=== PATIENT | female | born 1940 | race Caucasian/White ===

== ENCOUNTER → 2016-12-31 | Outpatient (CLI) | payer OTHER, BC ==
[~2016-12-31] MED LIST: CALCIUM 500 +1 EAC5 PO; COUMADIN 2.5MG2.5 M1 PO; COUMADIN 5 MG TA5 M1 PO; DILTIAZEM ER120 M1 PO; K-DUR 20 MEQ T20 MEQ PO; LASIX 20 MG TAB20 MG PO; SOTALOL80 MG PO
== END ==
LOC: RAD 01:51
DX: Z12.31 Encounter for screening mammogram for malignant neoplasm of breast (principal)

== ENCOUNTER → 2018-01-19 | Outpatient (CLI) | payer OTHER, BC | LOC: RAD 01-06 10:50 | DX: Z12.31 Encounter for screening mammogram for malignant neoplasm of breast (principal) ==